=== PATIENT | female | born 1995 | race Caucasian/White ===

== ENCOUNTER 2017-01-21 06:55 | Emergency (ER) | payer OTHER ==
[~2017-01-21] VITALS: Ht 154.9 cm; Wt 54.4 kg
[~2017-01-21 06:55] MED LIST: IBUPROFEN800 M1 PO; PRENATAL TABLE1 EAC2 PO
[2017-01-21 07:34] LABS: ABSOLUTE BASOPHIL COUNT 0 /CUMM (0.0-0.2); ABSOLUTE EOSINOPHIL COUNT 0 /CUMM (0.0-0.7); ABSOLUTE GRANULOCYTE CT 14.8 /CUMM (1.4-6.5); ABSOLUTE LYMPH COUNT 0.5 /CUMM (1.2-3.4); ABSOLUTE MONOCYTE COUNT 0.6 /CUMM (0.10-0.60); BASOPHIL % 0 % (0.0-2.0); EOSINOPHIL % 0 % (0-5); GRANULOCYTE % 92.6 % (42.2-75.2); HEMATOCRIT 46.5 % (37-47); MEAN CORPUSCULAR HGB CONC 34.1 G/DL (33.0-37.0); MEAN CORPUSCULAR VOLUME 87.8 FL (81.0-99.0); MEAN PLATELET VOLUME 9.2 FL (7.4-10.4); PLATELET COUNT 310 /CUMM (130-400); RBC DISTRIBUTION WIDTH 12.4 % (11.5-14.5)
--- NOTE | 2017-01-21 08:03 | ED GI/GU/ABDOMINAL COMPLAINT ---
History of Present Illness General Chief Complaint: Abdominal Pain/Flank Pain Stated Complaint: ABD PAIN Source: patient, family, old records Exam Limitations: no limitations Vital Signs & Intake/Output Vital Signs & Intake/Output Vital Signs Date Time Temp Pulse Resp B/P B/P Pulse O2 O2 Flow FiO2 Mean Ox Delivery Rate 01/21 0908 98.6 76 18 122/84 98 Room Air 01/21 0719 96.5 109 20 100/65 98 Room Air Allergies Coded Allergies: No Known Allergies (04/23/16) Reconcile Medications Medroxyprogesterone Acetate 150 MG/ML SYRINGE 1 ML IM Q3M BC (Reported) Ondansetron (Zofran Odt) 4 MG TAB.RAPDIS 1 TAB SL TID PRN NAUSEA Triage Note: PT TO ED C/O N/V/D X 12 HOURS. C/O ABD PAIN. DENIES , PT ON DEPO SHOT. Triage Nurses Notes Reviewed? yes ? N Is pt currently ? No HPI: Since 9:30 last evening patient has been having epigastric abdominal pain associated with nausea vomiting and diarrhea. The pain is a burning sensation in her epigastric area. Pain worsens just prior to having to vomit and then decreases after she vomits however the patient does not go away entirely. She also occasionally gets left lower quadrant cramps just prior to having a bowel movement within the pain goes away entirely after the bowel movement. At its worst the cramps are 410 and the burning is a 7 out of 10. There are no fevers or chills. She denies any chest pain or shortness of breath. Patient is unable to tolerate anything by mouth. Patient is 9 months and is on the Depo-Provera shot. Past History Travel History Traveled to [place] past 21 day No Medical History Any Pertinent Medical History? none Surgical History Surgical History: none Psychosocial History What is your primary language Khmer Tobacco Use: Current Daily Use Daily Tobacco Use Amount/Type: => 5 Cigarettes daily ETOH Use: denies use Illicit Drug Use: denies illicit drug use Family History Hx Contributory? No Review of Systems Review of Systems Constitutional: Reports: no symptoms. EENTM: Reports: no symptoms. Respiratory: Reports: no symptoms. Cardiovascular: Reports: no symptoms. GI: Reports: see HPI, abdominal pain, diarrhea, nausea, vomiting. Genitourinary: Reports: no symptoms. Musculoskeletal: Reports: no symptoms. Skin: Reports: no symptoms. Neurological/Psychological: Reports: no symptoms. Hematologic/Endocrine: Reports: no symptoms. Immunologic/Allergic: Reports: no symptoms. All Other Systems: Reviewed and Negative Physical Exam Physical Exam General Appearance: well developed/nourished, alert, awake, moderate distress Head: atraumatic, normal appearance Eyes: Bilateral: PERRL, EOMI, other (ANICTERIC). Ears, Nose, Throat, Mouth: hearing grossly normal, DRY MUCOSA Neck: normal inspection, supple, full range of motion Respiratory: normal breath sounds, chest non-tender, no respiratory distress, lungs clear Cardiovascular: regular rate/rhythm, normal peripheral pulses Gastrointestinal: normal bowel sounds, soft, no organomegaly, tenderness (RUQ), NO HERNANDES'S SIGN, NO REBOUND OR GUARDING Back: normal inspection, normal range of motion, NO CVA TENDERNESS Extremities: normal range of motion Neurologic/Psych: no motor/sensory deficits, awake, alert, oriented x 3, normal gait, normal mood/affect Skin: intact, normal color, warm/dry Core Measures ACS in differential dx? No Severe Sepsis Present: No Septic Shock Present: No Progress Differential Diagnosis: biliary colic, bowel obstruction, ectopic , gastritis, hepatitis, hernia, intrauterine , pancreatitis, peptic ulcer , PUD/GERD, threatened AB Plan of Care: Orders Procedure Date/time Status Add-on Test (ER Only) 01/21 0818 Active LIPASE 01/21 0725 Complete AMYLASE 01/21 0725 Complete COMPREHENSIVE METABOLIC PANEL 01/21 0724 Complete CBC WITHOUT DIFFERENTIAL 01/21 0724 Complete URINE 01/21 0656 Complete URINALYSIS 01/21 0656 Complete Laboratory Tests 01/21/17 0725: Anion Gap 16, Estimated GFR > 60, BUN/Creatinine Ratio 21.3, Glucose 185 H, Calcium 10.6 H, Total Bilirubin 1.6 H, AST 21, ALT 28, Alkaline Phosphatase 60 , Total Protein 8.4 H, Albumin 5.3 H, Globulin 3.1, Albumin/Globulin Ratio 1.7 , Amylase 62, Lipase 74, CBC w Diff MAN DIFF ORDERED, RBC 5.30, MCV 87.8, MCH 30.0, RDW 12.4, MPV 9.2, Gran % 92.6 H, Lymphocytes % 3.3 L, Monocytes % 4.1, Eosinophils % 0, Basophils % 0 L, Absolute Granulocytes 14.8 H, Segmented Neutrophils 88 H, Band Neutrophils 3, Absolute Lymphocytes 0.5 L, Lymphocytes 2 L, Monocytes 7, Absolute Monocytes 0.6, Absolute Eosinophils 0, Absolute Basophils 0, Platelet Estimate VERIFIED BY SMEAR, Normocytic RBCs VERIFIED, Normochromic RBCs VERIFIED, PUBS MCHC 34.1 01/21/17 0701: Urinalysis MANY H, Urine Color ORANG H, Urine Clarity CLDY H, Urine pH 6.0, Ur Specific [place] >= 1.030, Urine Protein 100 H, Urine Ketones NEG, Urine Nitrite POS H, Urine Bilirubin NEG@ICTO, Urine Urobilinogen 0.2, Ur Leukocyte Esterase NEG, Ur Microscopic SEDIMENT EXAMINED, Urine RBC 3-5, Urine WBC RARE, Ur Epithelial Cells FEW, Urine Bacteria MOD H, Urine Mucus RARE, Urine Hemoglobin MOD H, Urine Glucose NEG, Urine Test NEGATIVE Diagnostic Imaging: Viewed by Me: Ultrasound. Discussed w/RAD: Ultrasound. Radiology Impression: PATIENT: KONSTANTIN MOSS PRESENT AGE: 21 PATIENT ACCOUNT NO: [id number] : 94 LOCATION: [facility] ORDERING PHYSICIAN: REID TO MD SERVICE DATE: 01/21/17 EXAM TYPE: US - US-LIMITED ABDOMEN EXAMINATION: US ABDOMEN LIMITED CLINICAL INFORMATION: Cholecystitis. COMPARISON: None TECHNIQUE: Real-time imaging of the right upper quadrant abdominal viscera. FINDINGS: PANCREAS: Normal. LIVER: Normal. The liver demonstrates normal size, contour and echogenicity. No focal lesion or intrahepatic biliary duct dilatation. GALLBLADDER: Normal. The gallbladder is physiologically distended without evidence of stones, sludge, polyps, wall thickening or pericholecystic fluid. COMMON BILE DUCT: Normal in caliber measuring 0.3 cm in diameter. RIGHT KIDNEY: Normal. No hydronephrosis. No renal calculi or focal parenchymal lesions. The kidney measures 9.5 cm in maximum dimension. FREE FLUID: None. IMPRESSION: Normal right upper quadrant ultrasound. The gallbladder is normal in appearance. There is no biliary ductal dilatation DICTATED BY: SHANNAN BLAIR MD DATE/TIME DICTATED:01/21/17832 LUNG PULLER:JOHANNA DATE/TIME TRANSCRIBED:01/21/17832 CONFIDENTIAL, DO NOT COPY WITHOUT APPROPRIATE AUTHORIZATION. <Electronically signed in Other Vendor System> SIGNED BY: SHANNAN BLAIR MD 01/21/17 0838 Initial ED EKG: none Comments: Patient is feeling much better after IV Zofran and IV fluids. On repeat exam there is no right upper quadrant tenderness. There is no right lower quadrant tenderness. There is no guarding or rebound. Departure Departure Disposition: HOME OR SELF CARE Condition: Stable Clinical Impression Primary Impression: Gastroenteritis Secondary Impressions: Upper abdominal pain, unspecified Referrals: PATIENT HAS NO PRIMARY CARE DR (PCP/Family) Additional Instructions: TAKE ZOFRAN NEEDED RETURN IF SYMPTOMS WORSEN OR FOR ANY CONCERNS Departure Forms: Customer Survey General Discharge Information Prescriptions: Current Visit Scripts Ondansetron (Zofran Odt) 1 TAB SL TID PRN NAUSEA #10 TAB
[2017-01-21] MEDS ORDERED: MEDROXYPRO150 MG/11 IM (08:25)
--- NOTE | 2017-01-21 08:38 | ULTRASOUND REPORT ---
EXAMINATION: US ABDOMEN LIMITED CLINICAL INFORMATION: Cholecystitis. COMPARISON: None TECHNIQUE: Real-time imaging of the right upper quadrant abdominal viscera. FINDINGS: PANCREAS: Normal. LIVER: Normal. The liver demonstrates normal size, contour and echogenicity. No focal lesion or intrahepatic biliary duct dilatation. GALLBLADDER: Normal. The gallbladder is physiologically distended without evidence of stones, sludge, polyps, wall thickening or pericholecystic fluid. COMMON BILE DUCT: Normal in caliber measuring 0.3 cm in diameter. RIGHT KIDNEY: Normal. No hydronephrosis. No renal calculi or focal parenchymal lesions. The kidney measures 9.5 cm in maximum dimension. FREE FLUID: None. IMPRESSION: Normal right upper quadrant ultrasound. The gallbladder is normal in appearance. There is no biliary ductal dilatation
[2017-01-21] MEDS ORDERED: ZOFRAN ODT4 M1 SL (08:53)
[2017-01-21 09:08] VITALS: BP 122/84
== END 2017-01-21 09:08 ==
LOC: ERH 06:55
PROVIDERS: Emergency Medicine
DX: K52.9 Noninfective gastroenteritis and colitis, unspecified (principal)
CPT/HCPCS: 81001; 81025; 96374; J2405